=== PATIENT | female | born 1985 | race Caucasian/White ===

== ENCOUNTER 2017-12-29 06:30 | Emergency (ER) | payer OTHER ==
[2017-12-29 06:53] VITALS: RESP 18
[2017-12-29] MEDS ORDERED: SODIUM CHLORIDE 0.9% 2,000 ML IV STA (07:14)
[2017-12-29] MEDS ORDERED: ONDANSETRON 4 MG/2 ML VIAL IVP STA (07:14)
[2017-12-29] MEDS ORDERED: DICYCLOMINE 10 MG/ML 2 ML AMP IM STA (07:15)
[2017-12-29] MEDS ORDERED: FAMOTIDINE 20 MG/2 ML VIAL IV STA (07:15)
--- NOTE | 2017-12-29 07:17 | ED ---
General Adult HPI - General Chief complaint: Nausea/Vomiting/Diarrhea Stated complaint: Vomitng Time Seen by Provider: 12/29/17 07:10 Source: patient, RN notes reviewed Mode of arrival: ambulatory Limitations: no limitations - History of Present Illness Initial comments: Patient is a pleasant 32-year-old female presenting to the emergency Department with complaints of vomiting. Symptoms have been occurring for the past 5 days. Patient has had nausea and several episodes of vomiting. Limited oral intake the past couple of days. Patient has had some diarrhea as well. Patient has had some occasional abdominal cramping as well. No significant abdominal pain. No history of chronic abdominal problems. Denies possible . - Related Data Previous Rx's Medication Instructions Recorded Ondansetron Odt [Zofran Odt] 4 mg PO Q8HR PRN #10 tab 12/29/17 Allergies Allergy/AdvReac Type Severity Reaction Status Date / Time No Known Allergies Allergy Verified 12/29/17 06:54 Review of Systems ROS Statement: Those systems with pertinent positive or pertinent negative responses have been documented in the HPI. ROS Other: All systems not noted in ROS Statement are negative. Constitutional: Denies: fever Eyes: Denies: eye pain ENT: Denies: ear pain Respiratory: Denies: cough Cardiovascular: Denies: chest pain Endocrine: Denies: fatigue Gastrointestinal: Reports: nausea, vomiting, diarrhea Genitourinary: Denies: dysuria, hematuria Musculoskeletal: Denies: back pain Skin: Denies: rash Neurological: Denies: weakness Past Medical History Past Medical History: No Reported History History of Any Multi-Drug Resistant Organisms: None Reported Past Surgical History: No Surgical Hx Reported Past Psychological History: No Psychological Hx Reported Smoking Status: Never smoker Past Alcohol Use History: None Reported Past Drug Use History: None Reported General Exam Limitations: no limitations General appearance: alert, in no apparent distress Head exam: Present: atraumatic Eye exam: Present: normal appearance, PERRL ENT exam: Present: normal oropharynx Neck exam: Present: normal inspection Respiratory exam: Present: normal lung sounds bilaterally Cardiovascular Exam: Present: regular rate, normal rhythm Expanded Peripheral pulses: 2+: Posterior Tibialis (R), Posterior Tibialis (L) GI/Abdominal exam: Present: soft, normal bowel sounds. Absent: distended, tenderness, guarding, rebound, rigid, pulsatile mass Extremities exam: Present: normal inspection Neurological exam: Present: alert Psychiatric exam: Present: normal affect, normal mood Skin exam: Present: normal color Course Vital Signs 12/29/17 12/29/17 06:50 08:06 Temperature 98.4 F Pulse Rate 98 89 Respiratory 18 18 Rate Blood Pressure 136/94 127/79 O2 Sat by Pulse 96 99 Oximetry Medical Decision Making - Medical Decision Making Patient reevaluated and resting comfortably in bed. Patient states she does feel better. Patient is updated on results. - Lab Data Result diagrams: 12/29/17 07:35 12/29/17 07:35 Lab Results 12/29/17 12/29/17 12/29/17 Range/Units 07:20 07:20 07:35 WBC (3.8-10.6) k/uL RBC (3.80-5.40) m/uL Hgb (11.4-16.0) gm/dL Hct (34.0-46.0) % MCV (80.0-100.0) fL MCH (25.0-35.0) pg MCHC (31.0-37.0) g/dL RDW (11.5-15.5) % Plt Count (150-450) k/uL Neutrophils % (Manual) % Lymphocytes % (Manual) % Monocytes % (Manual) % Eosinophils % (Manual) % Neutrophils # (Manual) (1.3-7.7) k/uL Lymphocytes # (Manual) (1.0-4.8) k/uL Monocytes # (Manual) (0-1.0) k/uL Eosinophils # (Manual) (0-0.7) k/uL Nucleated RBCs (0-0) /100 WBC Polychromasia Sodium 141 (137-145) mmol/L Potassium 3.6 (3.5-5.1) mmol/L Chloride 106 (98-107) mmol/L Carbon Dioxide 21 L (22-30) mmol/L Anion Gap 14 mmol/L BUN 14 (7-17) mg/dL Creatinine 0.82 (0.52-1.04) mg/dL Est GFR (CKD-EPI)AfAm >90 (>60 ml/min/1.73 sqM) Est GFR (CKD-EPI)NonAf >90 (>60 ml/min/1.73 sqM) Glucose 101 H (74-99) mg/dL Calcium 9.0 (8.4-10.2) mg/dL Total Bilirubin 0.7 (0.2-1.3) mg/dL AST 42 H (14-36) U/L ALT 33 (9-52) U/L Alkaline Phosphatase 38 (38-126) U/L Total Protein 7.4 (6.3-8.2) g/dL Albumin 4.2 (3.5-5.0) g/dL Amylase 83 (30-110) U/L Lipase 379 H (23-300) U/L Urine Color Dark Yellow Urine Appearance Cloudy H (Clear) Urine pH 6.0 (5.0-8.0) Ur Specific Matheny 1.034 (1.001-1.035) Urine Protein 1+ H (Negative) Urine Glucose (UA) Negative (Negative) Urine Ketones 2+ H (Negative) Urine Blood Negative (Negative) Urine Nitrite Negative (Negative) Urine Bilirubin 1+ H (Negative) Urine Urobilinogen <2.0 (<2.0) mg/dL Ur Leukocyte Esterase Negative (Negative) Urine RBC 6 H (0-5) /hpf Urine WBC 6 H (0-5) /hpf Ur Squamous Epith Cells 4 (0-4) /hpf Urine Bacteria Rare H (None) /hpf Urine Mucus Many H (None) /hpf Urine HCG, Qual Not Detected (Not Detectd) 12/29/17 Range/Units 07:35 WBC 4.6 (3.8-10.6) k/uL RBC 4.91 (3.80-5.40) m/uL Hgb 15.0 (11.4-16.0) gm/dL Hct 44.3 (34.0-46.0) % MCV 90.3 (80.0-100.0) fL MCH 30.6 (25.0-35.0) pg MCHC 33.9 (31.0-37.0) g/dL RDW 11.9 (11.5-15.5) % Plt Count 239 (150-450) k/uL Neutrophils % (Manual) 58 % Lymphocytes % (Manual) 25 % Monocytes % (Manual) 15 % Eosinophils % (Manual) 2 % Neutrophils # (Manual) 2.67 (1.3-7.7) k/uL Lymphocytes # (Manual) 1.15 (1.0-4.8) k/uL Monocytes # (Manual) 0.69 (0-1.0) k/uL Eosinophils # (Manual) 0.09 (0-0.7) k/uL Nucleated RBCs 0 (0-0) /100 WBC Polychromasia Present Sodium (137-145) mmol/L Potassium (3.5-5.1) mmol/L Chloride (98-107) mmol/L Carbon Dioxide (22-30) mmol/L Anion Gap mmol/L BUN (7-17) mg/dL Creatinine (0.52-1.04) mg/dL Est GFR (CKD-EPI)AfAm (>60 ml/min/1.73 sqM) Est GFR (CKD-EPI)NonAf (>60 ml/min/1.73 sqM) Glucose (74-99) mg/dL Calcium (8.4-10.2) mg/dL Total Bilirubin (0.2-1.3) mg/dL AST (14-36) U/L ALT (9-52) U/L Alkaline Phosphatase (38-126) U/L Total Protein (6.3-8.2) g/dL Albumin (3.5-5.0) g/dL Amylase (30-110) U/L Lipase (23-300) U/L Urine Color Urine Appearance (Clear) Urine pH (5.0-8.0) Ur Specific Matheny (1.001-1.035) Urine Protein (Negative) Urine Glucose (UA) (Negative) Urine Ketones (Negative) Urine Blood (Negative) Urine Nitrite (Negative) Urine Bilirubin (Negative) Urine Urobilinogen (<2.0) mg/dL Ur Leukocyte Esterase (Negative) Urine RBC (0-5) /hpf Urine WBC (0-5) /hpf Ur Squamous Epith Cells (0-4) /hpf Urine Bacteria (None) /hpf Urine Mucus (None) /hpf Urine HCG, Qual (Not Detectd) Disposition Clinical Impression: Acute vomiting Disposition: HOME SELF-CARE Condition: Stable Instructions: Acute Nausea and Vomiting (ED), Acute Diarrhea (ED) Additional Instructions: Please follow-up with primary care physician in the next day or 2 for recheck. Return for not tolerating fluids, fevers, abdominal pain, worsening or changing symptoms or other concerns. Prescriptions: Ondansetron Odt [Zofran Odt] 4 mg PO Q8HR PRN #10 tab PRN Reason: Nausea Is patient prescribed a controlled substance at d/c from ED?: No Referrals: Byron Alvarenga DO [Primary Care Provider] - 1-2 days Time of Disposition: 09:04
[2017-12-29 07:59] LABS: Appearance,Urine Cloudy (Clear); Bacteria,Urine Rare /hpf; Bilirubin,Urine 1+ (Negative); Blood,Urine Negative (Negative); Color,Urine Dark Yellow; Glucose,Urine (UA) Negative (Negative); Ketones,Urine 2+ (Negative); Leukocyte Esterase,Urine Negative (Negative); Mucus,Urine Many /hpf; Nitrite,Urine Negative (Negative); Protein,Urine 1+ (Negative); RBC,Urine 6 /hpf (0-5); Specific Gravity,Urine 1.034 (1.001-1.035); Squamous Epithelial Cell,Urine 4 /hpf (0-4); Urobilinogen,Urine <2.0 mg/dL (<2.0); WBC,Urine 6 /hpf (0-5)
[2017-12-29 08:06] LABS: ALT 33 U/L (9-52); AST 42 U/L (14-36); Albumin 4.2 g/dL (3.5-5.0); Alkaline Phosphatase 38 U/L (38-126); Amylase 83 U/L (30-110); Anion Gap 14 mmol/L; Blood Urea Nitrogen 14 mg/dL (7-17); Carbon Dioxide 21 mmol/L (22-30); Chloride 106 mmol/L (98-107); Glucose 101 mg/dL (74-99); Lipase 379 U/L (23-300); Potassium 3.6 mmol/L (3.5-5.1); Sodium 141 mmol/L (137-145); Total Bilirubin 0.7 mg/dL (0.2-1.3); Total Protein 7.4 g/dL (6.3-8.2)
[2017-12-29 08:12] LABS: HCT 44.3 % (34.0-46.0); MCH 30.6 pg (25.0-35.0); MCHC 33.9 g/dL (31.0-37.0); MCV 90.3 fL (80.0-100.0); Platelet Count 239 k/uL (150-450); RBC 4.91 m/uL (3.80-5.40); RDW 11.9 % (11.5-15.5); WBC 4.6 k/uL (3.8-10.6)
[2017-12-29 08:45] LABS: Eosinophils # (M) 0.09 k/uL (0-0.7); Lymphocytes # (M) 1.15 k/uL (1.0-4.8); Monocytes # (M) 0.69 k/uL (0-1.0); Neutrophils # (M) 2.67 k/uL (1.3-7.7); Neutrophils % (M) 58 %; Nucleated Red Blood Cells 0 /100 WBC (0-0); Polychromasia Present; Total Cells Counted 100
[2017-12-29 09:15] VITALS: BP 120/73; PULSE 86; TEMP 98
== END 2017-12-29 09:15 | disposition home or self-care (01) ==
LOC: EC 06:30
DX: R11.10 Vomiting, unspecified (principal); R19.7 Diarrhea, unspecified; Z32.02 Encounter for pregnancy test, result negative
CPT/HCPCS: 36415; 80053; 82150; 83690; 85025; 81001; 81025; 99284; 96374; 96375; 96361; 96372; J0500; J2405

== ENCOUNTER 2023-02-20 10:19 | Day surgery (SDC) | payer OTHER ==
[2023-02-20] MEDS ORDERED: LACTATED RINGERS 1,000 ML IV SCH (10:57)
[2023-02-20 11:33] VITALS: TEMP 98
[2023-02-20] MEDS ORDERED: PROPOFOL 10 MG/ML 20 ML VIAL IV ONE (12:24)
[2023-02-20] MEDS ORDERED: LIDOCAINE 1% INJ 10MG/ML (20 ML MDV) ONE (12:24)
--- NOTE | 2023-02-20 12:34 | P.PCN ---
Date of Procedure: 02/20/23 Procedure(s) Performed: BRIEF HISTORY: Patient is a 37-year-old, pleasant, white female scheduled for an upper endoscopy as a part of evaluation of globus-like sensation daily and dysphagia for the last 6 months duration. She also completed severe chest pain and occasional heartburn. Has been on Prilosec 20 mg daily with no help.. PROCEDURE PERFORMED: Esophagogastroduodenoscopy with biopsy. PREOPERATIVE DIAGNOSIS: Dysphagia for the last 6 months duration. IV sedation per anesthesia. PROCEDURE: After informed consent was obtained, the patient was brought into the endoscopy unit. IV sedation was administered by Anesthesia under continuous monitoring. Initially the Olympus GIF-140 video endoscope was inserted into the mouth. Esophagus intubated without any difficulty. It was gradually advanced into the stomach and duodenum and carefully examined. The bulb and the second part of the duodenum appeared normal. The scope at this time was withdrawn to the stomach, adequately insufflated with air, and upon careful examination, mucosa of the antrum, had mild mottling of the mucosa in the prepyloric area which was biopsied. Mucosa of the body, cardia and the fundus appeared normal. The scope was then withdrawn into the esophagus. The GE junction was located at 41 cm from the incisors. The esophagus appeared normal. There were no erosions or ulcerations seen. Biopsies were done from the mid and distal esophagus to rule out years of age esophagitis. The proximal cervical esophagus was carefully examined and appeared normal and the patient tolerated the procedure well. IMPRESSION: 1. Normal-appearing esophagus with no emesis of esophagitis or esophageal stricture. 2. Mild antral gastritis. RECOMMENDATIONS: The findings of this examination were discussed with the patient as well as her family. She was advised to follow with the biopsy results. She'll be seen in office in 3-4 weeks..
[2023-02-20 13:10] VITALS: BP 123/76; PULSE 77; RESP 20
== END 2023-02-20 13:38 | disposition home or self-care (01) ==
LOC: ORWHC2ENDO 10:19
PROVIDERS: ATTEND Internal Medicine Gastroenterology
DX: K29.50 Unspecified chronic gastritis without bleeding (principal); K20.90 Esophagitis, unspecified without bleeding; K21.9 Gastro-esophageal reflux disease without esophagitis; Z79.899 Other long term (current) drug therapy
CPT/HCPCS: 88305; 43239; J2001; J2704